=== PATIENT | male | born 1970 | race Hispanic/Latino ===

== ENCOUNTER 2025-05-23 19:44 | Emergency (ER) | payer BC ==
[~2025-05-23] VITALS: Ht 165.1 cm; Wt 88.5 kg
[2025-05-23] MEDS ORDERED: KETOROLAC TROMETHAMINE 30 MG/ML VIAL IV ONE (20:15)
[2025-05-23] MEDS ORDERED: FAMOTIDINE 20 MG/2 ML VIAL IV ONE ×2 (20:15→21:09)
[2025-05-23] MEDS ORDERED: KETOROLAC TROMETHAMINE 30 MG/ML VIAL ONE (21:09)
[2025-05-23] MEDS: ONDANSETRON HCL INJ 2MG/ML 2ML 2 MG/ML VIAL IV ONE (21:26)
[2025-05-23] MEDS: SODIUM CHLORIDE 0.9% 1000ML 1,000 ML IV STA (21:26)
[2025-05-23] MEDS ORDERED: IOPAMIDOL 370 MG/ML 100 ML INFUS..BTL INJ ONE (21:46)
[2025-05-23 22:15] VITALS: PULSE 68; RESP 18; TEMP 98.7
[2025-05-23] MEDS ORDERED: MAALOX MAXIMUM355 ML PO (23:22)
[2025-05-23] MEDS ORDERED: PANTOPRAZOLE SO40 MG PO (23:22)
[2025-05-23 23:25] VITALS: BP 169/101; PULSE 68; RESP 18; TEMP 98.4; O2SAT 97
== END 2025-05-23 23:25 | disposition home or self-care (01) ==
LOC: FSED 19:56
DX: R10.13 Epigastric pain (principal); K29.70 Gastritis, unspecified, without bleeding; R11.0 Nausea
CPT/HCPCS: 74177; 99283; J1308; J1885; J7030; Q9967